=== PATIENT | male | born 2000 | race Caucasian/White ===

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

== ENCOUNTER 2019-08-18 18:13 | Emergency (ER) | payer BC, OTHER, SELFPAY ==
[2019-08-18 18:35] VITALS: BP 124/79; PULSE 90
[2019-08-18] MEDS ORDERED: Ondansetron 4 MG Tab.DIS PO ONE (18:51)
[2019-08-18] MEDS ORDERED: Acetaminophen/HYDROcodone 325-5 MG Tab PO ONE (18:51)
--- NOTE | 2019-08-18 18:58 | EDM.PDOC ---
ED HPI GENERAL MEDICAL PROBLEM - General Chief Complaint: Fever Stated Complaint: SORE THROAT AND VOMITING Time Seen by Provider: 08/18/19 18:36 Source of Information: Reports: Patient, RN Notes Reviewed - History of Present Illness INITIAL COMMENTS - FREE TEXT/NARRATIVE: 18-year-old male comes in with cough sore throat fever and congestion. Her to 3 days ago. Been more severe yesterday and today. As had to continue working the last 2 days and that has not helped him. His cough is dry, nonproductive. He has had headache, muscle aching, decreased energy along with all of this. He did not get a flu shot this year. Throat Pain Score (Numeric/FACES): 5 - Related Data Allergies Allergy/AdvReac Type Severity Reaction Status Date / Time No Known Allergies Allergy Verified 08/18/19 18:35 Home Meds: Home Meds Albuterol Sulfate [Albuterol Sulfate HFA] 1 - 2 puff INH Q4H PRN 10/31/14 [ History] Albuterol [Proventil Neb Soln] 5 mg NEB Q4H PRN 10/31/14 [History] Fluticasone/Salmeterol [Advair 250-50 Diskus] 1 puff PO BID 09/29/17 [History] Montelukast Sodium 10 mg PO BEDTIME 09/29/17 [History] Metoprolol Tartrate 125 mg PO DAILY 08/18/19 [History] Past Medical History HEENT History: Reports: Other (See Below) Other HEENT History: seasonal allergies Cardiovascular History: Reports: [place] Respiratory History: Reports: Asthma Gastrointestinal History: Reports: None Genitourinary History: Reports: None 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 Musculoskeletal History: Reports: None Neurological History: Reports: None Psychiatric History: Reports: Eating Disorders Endocrine/Metabolic History: Reports: None Hematologic History: Reports: None Immunologic History: Reports: None Oncologic (Cancer) History: Reports: None Dermatologic History: Reports: Eczema Other Dermatologic History: Eczema when younger, not currently - Infectious Disease History Infectious Disease History: Reports: None - Past Surgical History Head Surgeries/Procedures: Reports: None HEENT Surgical History: Reports: Adenoidectomy, Tonsillectomy Cardiovascular Surgical History: Reports: None Respiratory Surgical History: Reports: None GI Surgical History: Reports: None Male Surgical History: Reports: None Endocrine Surgical History: Reports: None Neurological Surgical History: Reports: None Musculoskeletal Surgical History: Reports: Shoulder Surgery, Other (See Below) Other Musculoskeletal Surgeries/Procedures:: ORIF clavicle, broken pelvic ( surgery not performed) Oncologic Surgical History: Reports: None Dermatological Surgical History: Reports: None Social & Family History - Tobacco Use Smoking Status *Q: Never Smoker Second Hand Smoke Exposure: No - Caffeine Use Caffeine Use: Reports: Soda Other Caffeine Use: Drinks 2 20 oz sodas per day, drinks sweetened tea once per week - Recreational Drug Use Recreational Drug Use: No ED ROS GENERAL - Review of Systems Review Of Systems: See Below Constitutional: Reports: Fever, Chills HEENT: Reports: Rhinitis, Throat Pain Respiratory: Reports: Wheezing, Cough Cardiovascular: Reports: Chest Pain GI/Abdominal: Reports: Decreased Appetite, Vomiting (With coughing and gagging) . Denies: Abdominal Pain (With coughing) Musculoskeletal: Reports: Other (Generalized achiness) Skin: Reports: No Symptoms Neurological: Reports: Dizziness, Headache ED EXAM, GENERAL - Physical Exam Exam: See Below General Appearance: Alert, Mild Distress Eye Exam: Bilateral Eye: PERRL Nose: Normal Inspection Throat/Mouth: Normal Inspection, Normal Oropharynx Neck: Supple Respiratory/Chest: No Respiratory Distress, Lungs Clear, Normal Breath Sounds. No: Rhonchi, Wheezing Cardiovascular: Regular Rate, Rhythm GI/Abdominal: Non-Tender Extremities: Normal Inspection, Normal Range of Motion Neurological: Alert, Oriented, No Motor/Sensory Deficits Skin Exam: Warm, Dry, Normal Color Course - Vital Signs Last Recorded V/S: Last Vital Signs Temp 100.0 F 08/18/19 18:34 Pulse 90 08/18/19 18:34 Resp 15 08/18/19 18:34 BP 124/79 08/18/19 18:34 Pulse Ox 96 08/18/19 18:34 - Orders/Labs/Meds Meds: Medications Discontinued Medications Generic Name Dose Route Start Last Admin Trade Name Freq PRN Reason Stop Dose Admin Hydrocodone Bitart/Acetaminophen 1 tab 08/18/19 18:51 [place]born 325-5 Mg PO 08/18/19 18:52 ONETIME ONE Ondansetron HCl 4 mg 08/18/19 18:51 Zofran Odt PO 08/18/19 18:52 ONETIME ONE Departure - Departure Time of Disposition: 19:10 Disposition: Home, Self-Care 01 Condition: Fair Clinical Impression: Influenza - Discharge Information Referrals: PCP,Not In Area [Primary Care Provider] - Forms: ED Department Discharge, ED Return to Work/School Form Additional Instructions: Rest. Vaporizer or steam as needed. You've been given Zofran 4 mg ODT while here in the ED for nausea/vomiting. We are sending one hydrocodone pain pill home with you to take after you have had something to eat. That will help your throat discomfort, help your cough, help you sleep better tonight. No work recommended for the next 2 days. You should start feeling better over the next 1 -2 days. You should be feeling much better within 2-3 days. The cough will take another 1-2 weeks to totally go away. You can continue to alternate tylenol and ibuprofen as needed. Follow up clinic if not much better within 3 to 4 days. Return to ED as needed. Sepsis Event Note - Evaluation Sepsis Screening Result: No Definite Risk - Focused Exam Vital Signs: Vital Signs Temp Pulse Resp BP Pulse Ox 08/18/19 18:34 100.0 F 90 15 124/79 96 Date Exam was Performed: 08/18/19 Time Exam was Performed: 19:00
== END 2019-08-18 19:32 | disposition home or self-care (01) ==
LOC: JD.ED 18:13
DX: J11.1 Influenza due to unidentified influenza virus with other respiratory manifestations (principal); I25.2 Old myocardial infarction; Z98.890 Other specified postprocedural states
CPT/HCPCS: 99283; A9270

== ENCOUNTER 2020-06-09 21:12 | Emergency (ER) | payer SELFPAY ==
[2020-06-09] MEDS ORDERED: Sodium Chloride 0.9% 10 ML Syringe FLUSH PRN (21:37)
[2020-06-09] MEDS ORDERED: Albuterol/Ipratropium 3.0-0.5 MG/3 ML Neb Soln NEB ONE (21:38)
--- NOTE | 2020-06-09 21:56 | EDM.PDOC ---
ED HPI GENERAL MEDICAL PROBLEM - General Chief Complaint: Chest Pain Stated Complaint: CHEST PAIN Time Seen by Provider: 06/09/20 21:25 Source of Information: Reports: Patient History Limitations: Reports: No Limitations - History of Present Illness INITIAL COMMENTS - FREE TEXT/NARRATIVE: The patient presents with left sided chest pain. 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 When he walked into his home tonight he had more severe left sided chest pain. He has a history of Marfan's syndrome. He also has asthma and he is wheezing. He did have COVID 19 over a month ago. He tested negative over a month ago. He has no symptoms such as fever, chills, cough or shortness of breath. He does not smoke. Onset: Gradual Duration: Hour(s): Location: Reports: Chest Quality: Reports: Sharp Severity: Severe Improves with: Reports: None Worsens with: Reports: None Associated Symptoms: Reports: Chest Pain. Denies: Cough, Fever/Chills, Headaches, Nausea/Vomiting, Shortness of Breath Left Chest Pain Score (Numeric/FACES): 7 - Related Data Allergies Allergy/AdvReac Type Severity Reaction Status Date / Time No Known Allergies Allergy Verified 08/18/19 18:35 Home Meds: Home Meds Montelukast Sodium 10 mg PO BEDTIME 09/29/17 [History] Metoprolol Tartrate 100 mg PO DAILY 08/18/19 [History] predniSONE [Prednisone] 40 mg PO DAILY #10 tablet 06/09/20 [Rx] Past Medical History HEENT History: Reports: Other (See Below) Other HEENT History: seasonal allergies Cardiovascular History: Reports: [place] Respiratory History: Reports: Asthma Gastrointestinal History: Reports: None Genitourinary History: Reports: None 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: Reports: 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 Musculoskeletal History: Reports: Connective Tissue Disease Other Musculoskeletal History: marfans Neurological History: Reports: None Psychiatric History: Reports: Eating Disorders Endocrine/Metabolic History: Reports: None Hematologic History: Reports: None Immunologic History: Reports: None Oncologic (Cancer) History: Reports: None Dermatologic History: Reports: Eczema Other Dermatologic History: Eczema when younger, not currently - Infectious Disease History Infectious Disease History: Reports: None - Past Surgical History HEENT Surgical History: Reports: Adenoidectomy, Tonsillectomy Musculoskeletal Surgical History: Reports: Shoulder Surgery, Other (See Below) Other Musculoskeletal Surgeries/Procedures:: ORIF clavicle, broken pelvic (surgery not performed) Social & Family History - Tobacco Use Tobacco Use Status *Q: Never Tobacco User - Caffeine Use Caffeine Use: Reports: Soda Other Caffeine Use: Drinks 2 20 oz sodas per day, drinks sweetened tea once per week ED ROS GENERAL - Review of Systems Review Of Systems: See Below Constitutional: Reports: No Symptoms HEENT: Reports: No Symptoms Respiratory: Reports: No Symptoms Cardiovascular: Reports: Chest Pain Endocrine: Reports: No Symptoms GI/Abdominal: Reports: No Symptoms : Reports: No Symptoms Musculoskeletal: Reports: No Symptoms ED EXAM, GENERAL - Physical Exam Exam: See Below Exam Limited By: No Limitations General Appearance: Alert, No Apparent Distress Ears: Normal External Exam Nose: Normal Inspection Head: Atraumatic, Normocephalic Neck: Normal Inspection Respiratory/Chest: No Respiratory Distress, Wheezing Cardiovascular: Regular Rate, Rhythm, No Edema GI/Abdominal: Soft, Non-Tender, No Organomegaly, No Mass Back Exam: Normal Inspection #1 Interpretation EKG Date: 06/09/20 Time: 21:26 Rhythm: NSR Rate (Beats/Min): 79 [place]: Normal P-Wave: Present QRS: Normal ST-T: Normal QT: Normal Course - Vital Signs Last Recorded V/S: Last Vital Signs Temp 98.2 F 06/09/20 21:24 Pulse 60 06/09/20 21:24 Resp 18 06/09/20 21:24 BP 136/76 06/09/20 21:24 Pulse Ox 100 06/09/20 21:49 - Orders/Labs/Meds Orders: Active Orders 24 hr Category Date Time Status Cardiac Monitoring [RC] . DIRECTED Care 06/09/20 21:37 Active Peripheral IV Care [RC] . DIRECTED Care 06/09/20 21:38 Active RT Aerosol Therapy [RC] ASDIRECTED Care 06/09/20 21:38 Active Ang Chest [CT] Stat Exams 06/09/20 21:38 Taken Sodium Chloride 0.9% [Saline Flush] Med 06/09/20 21:37 Active 10 ml FLUSH ASDIRECTED PRN Peripheral IV Insertion Adult [OM.PC] Stat Oth 06/09/20 21:37 Ordered Medication Orders Sodium Chloride (Saline Flush) 10 ml FLUSH ASDIRECTED PRN PRN Reason: Keep Vein Open Last Admin: 06/09/20 21:51 Dose: 10 ml Documented by: CARLTON Labs: Laboratory Tests 06/09/20 06/09/20 06/09/20 Range/Units 21:48 21:48 21:48 WBC 6.84 (4.23-9.07) K/mm3 RBC 5.81 (4.63-6.08) M/mm3 Hgb 15.7 (13.7-17.5) gm/dl Hct 46.0 (40.1-51.0) % MCV 79.2 (79.0-92.2) fl MCH 27.0 (25.7-32.2) pg MCHC 34.1 (32.2-35.5) g/dl RDW Std Deviation 35.7 (35.1-43.9) fL Plt Count 259 (163-337) K/mm3 MPV 10.5 (9.4-12.3) fl Neut % (Auto) 54.6 (34.0-67.9) % Lymph % (Auto) 32.0 (21.8-53.1) % [place] % (Auto) 8.2 (5.3-12.2) % Eos % (Auto) 4.8 (0.8-7.0) Baso % (Auto) 0.3 (0.1-1.2) % Neut # (Auto) 3.73 (1.78-5.38) K/mm3 Lymph # (Auto) 2.19 (1.32-3.57) K/mm3 [place] # (Auto) 0.56 (0.30-0.82) K/mm3 Eos # (Auto) 0.33 (0.04-0.54) K/mm3 Baso # (Auto) 0.02 (0.01-0.08) K/mm3 D-Dimer, Quantitative 0.34 (0.19-0.50) mg/L Sodium 141 (136-145) mEq/L Potassium 3.6 (3.5-5.1) mEq/L Chloride 103 (98-107) mEq/L Carbon Dioxide 28 (21-32) mEq/L Anion Gap 13.6 (5-15) BUN 8 (7-18) mg/dL Creatinine 0.9 (0.7-1.3) mg/dL Est Cr Clr Drug Dosing 108.29 mL/min Estimated GFR (MDRD) > 60 (>60) mL/min BUN/Creatinine Ratio 8.9 L (14-18) Glucose 97 (74-106) mg/dL Calcium 9.5 (8.5-10.1) mg/dL Total Bilirubin 0.6 (0.2-1.0) mg/dL AST 14 L (15-37) U/L ALT 20 (16-63) U/L Alkaline Phosphatase 55 (46-116) U/L Troponin I < 0.017 (0.00-0.056) ng/mL Total Protein 8.2 (6.4-8.2) g/dl Albumin 4.4 (3.4-5.0) g/dl Globulin 3.8 gm/dL Albumin/Globulin Ratio 1.2 (1-2) Meds: Medications Generic Name Dose Route Start Last Admin Trade Name Freq PRN Reason Stop Dose Admin Sodium Chloride 10 ml 06/09/20 21:37 06/09/20 21:51 Saline Flush FLUSH 10 ml ASDIRECTED PRN Administration Keep Vein Open Discontinued Medications Generic Name Dose Route Start Last Admin Trade Name Freq PRN Reason Stop Dose Admin Albuterol/Ipratropium 3 ml 06/09/20 21:38 06/09/20 21:48 Duoneb 3.0-0.5 Mg/3 Ml NEB 06/09/20 21:39 3 ml ONETIME ONE Administration - Re-Assessments/Exams Free Text/Narrative Re-Assessment/Exam: 06/09/20 21:56 I ordered an IV saline lock, EKG, chest angio, labs and a duoneb. 06/09/20 23:21 His EKG shows a NSR with no acute changes. His CBC and CMP look good. His troponin and D-dimer are negative. His chest CT shows no PE and nothing else acute. He feels better with the treatment. I will get him a dose of prednisone here and a prescription for more. Departure - Departure Time of Disposition: 23:25 Disposition: Home, Self-Care 01 Condition: Good Clinical Impression: Atypical chest pain Asthma exacerbation Qualifiers: Asthma severity: mild Asthma persistence: intermittent Qualified Code(s): J45.21 - Mild intermittent asthma with (acute) exacerbation Prescriptions: predniSONE [Prednisone] 40 mg PO DAILY #10 tablet Referrals: Michelle Locke PA [Primary Care Provider] - Forms: ED Department Discharge, ED Return to Work/School Form Additional Instructions: Take the prednisone daily for 5 days. Use your inhaler 2 puffs every 4 to 6 hours as needed for shortness of breath. Take tylenol or motrin as needed for pain. Please return if you are worse. Sepsis Event Note (ED) - Evaluation Sepsis Screening Result: No Definite Risk - Focused Exam Vital Signs: Vital Signs Temp Pulse Resp BP Pulse Ox Pulse Ox 06/09/20 21:49 100 06/09/20 21:24 98.2 F 60 18 136/76 100 - My Orders Last 24 Hours: My Active Orders 06/09/20 21:37 Cardiac Monitoring [RC] . DIRECTED Sodium Chloride 0.9% [Saline Flush] 10 ml FLUSH ASDIRECTED PRN Peripheral IV Insertion Adult [OM.PC] Stat 06/09/20 21:38 Peripheral IV Care [RC] . DIRECTED RT Aerosol Therapy [RC] ASDIRECTED Ang Chest [CT] Stat - Assessment/Plan Last 24 Hours: My Active Orders 06/09/20 21:37 Cardiac Monitoring [RC] . DIRECTED Sodium Chloride 0.9% [Saline Flush] 10 ml FLUSH ASDIRECTED PRN Peripheral IV Insertion Adult [OM.PC] Stat 06/09/20 21:38 Peripheral IV Care [RC] . DIRECTED RT Aerosol Therapy [RC] ASDIRECTED Ang Chest [CT] Stat
[2020-06-09] MEDS ORDERED: predniSONE 20 MG Tab PO ONE (23:23)
[2020-06-09 23:46] VITALS: BP 118/63; PULSE 73
== END 2020-06-09 23:43 | disposition home or self-care (01) ==
LOC: JD.ED 21:12
DX: J45.21 Mild intermittent asthma with (acute) exacerbation (principal); R07.89 Other chest pain; I25.2 Old myocardial infarction; Z79.899 Other long term (current) drug therapy
CPT/HCPCS: 36415; 71275; 80053; 84484; 85025; 85379; 94640; 99285; J7512; 93010; 99284; J7620-GY